=== PATIENT | male | born 1930 | race Caucasian/White ===

== ENCOUNTER 2019-01-21 14:48 | Emergency (ER) | payer MEDICARE, OTHER ==
[2019-01-21 14:57] VITALS: BP 178/94; PULSE 82
--- NOTE | 2019-01-21 16:30 | EDM.PDOC ---
ED HPI GENERAL MEDICAL PROBLEM - General Chief Complaint: Chest Pain Stated Complaint: CHEST PAIN Time Seen by Provider: 01/21/19 14:53 Source of Information: Reports: Patient, RN Notes Reviewed - History of Present Illness INITIAL COMMENTS - FREE TEXT/NARRATIVE: 88-year-old male comes in after having several episodes of very brief chest discomfort this past morning. No pain at the current time. These episodes where like sharp jolts left lower anterior chest did not radiate to shoulder or arm or back. There was no nausea vomiting or diaphoresis. He does not feel short of breath. No recent cough fever or chills. He does have history of hypertension. He is not diabetic, he does not smoke. Treatments PROGRAM MANAGEMENT SPECIALIST: Reports: Other (see below) Other Treatments PROGRAM MANAGEMENT SPECIALIST: adult aspirin - Related Data Allergies Allergy/AdvReac Type Severity Reaction Status Date / Time No Known Allergies Allergy Verified 11/12/15 20:33 Home Meds: Home Meds Cholecalciferol (Vitamin D3) [Vitamin D3] 2,000 unit PO DAILY 01/21/19 [History] Lisinopril 20 mg PO DAILY 01/21/19 [History] Metoprolol Succinate 25 mg PO DAILY 01/21/19 [History] Past Medical History HEENT History: Reports: Hard of Hearing, Impaired Vision Cardiovascular History: Reports: Afib, High Cholesterol, Hypertension Respiratory History: Reports: Sleep Apnea Musculoskeletal History: Reports: Arthritis, Back Pain, Chronic - Past Surgical History HEENT Surgical History: Reports: Other (See Below) Cardiovascular Surgical History: Reports: Other (See Below) GI Surgical History: Reports: Hernia, Inguinal Social & Family History - Tobacco Use Smoking Status *Q: Never Smoker - Caffeine Use Caffeine Use: Reports: Coffee - Recreational Drug Use Recreational Drug Use: No ED ROS GENERAL - Review of Systems Review Of Systems: See Below Constitutional: Denies: Fever, Chills, Diaphoresis HEENT: Denies: Throat Pain Respiratory: Denies: Shortness of Breath, Wheezing, Pleuritic Chest Pain, Cough Cardiovascular: Reports: Chest Pain. Denies: Palpitations, Syncope (Gone) GI/Abdominal: Denies: Abdominal Pain, Nausea, Vomiting Musculoskeletal: Reports: No Symptoms Skin: Denies: Rash Neurological: Denies: Dizziness, Numbness, Tingling, Trouble Speaking, Difficulty Walking, Weakness ED EXAM, GENERAL - Physical Exam Exam: See Below General Appearance: Alert, No Apparent Distress Eye Exam: Bilateral Eye: PERRL Throat/Mouth: Normal Inspection Head: Atraumatic Neck: Supple, Full Range of Motion, Other (No JVD) Cardiovascular: Regular Rate, Rhythm GI/Abdominal: Soft, Non-Tender Back Exam: No: CVA Tenderness (L), CVA Tenderness (R) Extremities: Normal Inspection, Non-Tender. No: Pedal Edema, Leg Pain, Increased Warmth, Redness Neurological: Alert, Oriented, No Motor/Sensory Deficits Skin Exam: Warm, Dry, Normal Color EKG INTERPRETATION EKG Date: 01/21/19 Rhythm: NSR [place]: Normal P-Wave: Present QRS: Other (Q waves inferior leads) ST-T: Normal Course - Vital Signs Last Recorded V/S: Last Vital Signs Temp 97.9 F 01/21/19 14:55 Pulse 82 01/21/19 14:55 Resp 15 01/21/19 14:55 BP 178/94 H 01/21/19 14:55 Pulse Ox 92 L 01/21/19 14:55 - Orders/Labs/Meds Orders: Active Orders 24 hr Category Date Time Status EKG Documentation Completion [RC] ASDIRECTED Care 01/21/19 14:54 Active Chest 1V Frontal [CR] Stat Exams 01/21/19 15:25 Taken EKG 12 Lead [EK] Stat Ther 01/21/19 14:54 Ordered Labs: Laboratory Tests 01/21/19 01/21/19 01/21/19 Range/Units 15:00 15:00 17:05 WBC 5.36 (4.23-9.07) K/mm3 RBC 4.45 L (4.63-6.08) M/mm3 Hgb 14.2 (13.7-17.5) gm/dl Hct 42.9 (40.1-51.0) % MCV 96.4 H (79.0-92.2) fl MCH 31.9 (25.7-32.2) pg MCHC 33.1 (32.2-35.5) g/dl RDW Std Deviation 46.9 H (35.1-43.9) fL Plt Count 162 L (163-337) K/mm3 MPV 11.0 (9.4-12.3) fl Neut % (Auto) 69.9 H (34.0-67.9) % Lymph % (Auto) 19.2 L (21.8-53.1) % [place] % (Auto) 8.2 (5.3-12.2) % Eos % (Auto) 2.1 (0.8-7.0) Baso % (Auto) 0.4 (0.1-1.2) % Neut # (Auto) 3.75 (1.78-5.38) K/mm3 Lymph # (Auto) 1.03 L (1.32-3.57) K/mm3 [place] # (Auto) 0.44 (0.30-0.82) K/mm3 Eos # (Auto) 0.11 (0.04-0.54) K/mm3 Baso # (Auto) 0.02 (0.01-0.08) K/mm3 Sodium 142 (136-145) mEq/L Potassium 3.7 (3.5-5.1) mEq/L Chloride 107 (98-107) mEq/L Carbon Dioxide 26 (21-32) mEq/L Anion Gap 12.7 (5-15) BUN 28 H (7-18) mg/dL Creatinine 0.9 (0.7-1.3) mg/dL Est Cr Clr Drug Dosing 59.26 mL/min Estimated GFR (MDRD) > 60 (>60) mL/min BUN/Creatinine Ratio 31.1 H (14-18) Glucose 106 (83-115) mg/dL Calcium 9.1 (8.5-10.1) mg/dL Total Bilirubin 0.4 (0.2-1.0) mg/dL AST 19 (15-37) U/L ALT 19 (16-63) U/L Alkaline Phosphatase 80 (46-116) U/L Troponin I < 0.017 < 0.017 (0.00-0.056) ng/mL Total Protein 6.8 (6.4-8.2) g/dl Albumin 3.6 (3.4-5.0) g/dl Globulin 3.2 gm/dL Albumin/Globulin Ratio 1.1 (1-2) Meds: Medications Discontinued Medications Generic Name Dose Route Start Last Admin Trade Name Freq PRN Reason Stop Dose Admin Aspirin 324 mg 01/21/19 16:36 01/21/19 16:54 Aspirin PO 01/21/19 16:37 324 mg ONETIME ONE Administration - Re-Assessments/Exams Free Text/Narrative Re-Assessment/Exam: 01/21/19 16:35 Initial troponin did come back normal. Episodes of chest discomfort this past morning were about 6 hours ago. Liver he said he does feel a slight pressure left anterior chest with that do a repeat troponin at the appropriate time. He continues to show sinus rhythm no ectopy. X-ray did not show any acute findings. Departure - Departure Time of Disposition: 18:21 Disposition: Home, Self-Care 01 Condition: Fair Clinical Impression: Atypical chest pain Instructions: Nonspecific Chest Pain, [id number] Referrals: Mita Boyd MD [Primary Care Provider] - Forms: ED Department Discharge Additional Instructions: Rest, increase activity as tolerated. Continue current medications. If it does not upset her stomach go back to taking an 81 mg baby aspirin daily for now. Follow-up at the [place] [facility] in 4-5 days for recheck. Return to ED as needed if symptoms worsening in any way. - My Orders Last 24 Hours: My Active Orders 01/21/19 14:54 EKG Documentation Completion [RC] ASDIRECTED EKG 12 Lead [EK] Stat 01/21/19 15:25 Chest 1V Frontal [CR] Stat - Assessment/Plan Last 24 Hours: My Active Orders 01/21/19 14:54 EKG Documentation Completion [RC] ASDIRECTED EKG 12 Lead [EK] Stat 01/21/19 15:25 Chest 1V Frontal [CR] Stat
[2019-01-21] MEDS ORDERED: Aspirin 81 MG Tab.Chew PO ONE (16:36)
--- NOTE | 2019-01-24 06:33 | CR ---
Chest: Portable view of the chest was obtained. Comparison: Prior chest x-ray of 09/22/14 is available. Heart size is normal. Tortuous thoracic aorta is noted. Lungs are clear with no acute parenchymal change. Bony structures are grossly intact. Impression: 1. Nothing acute is appreciated on portable chest x-ray. Diagnostic code #1 This report was dictated in [place] Standard Time
== END 2019-01-21 18:33 | disposition home or self-care (01) ==
LOC: JD.ED 14:48
DX: R07.89 Other chest pain (principal); I10 Essential (primary) hypertension; Z79.899 Other long term (current) drug therapy
CPT/HCPCS: 36415; 71045; 80053; 84484; 85025; 93005; 99285; A9270; 93010; 99283